=== PATIENT | male | born 1970 | race African-American/Black ===

== ENCOUNTER 2020-08-13 07:30 | Day surgery (SDC) | payer OTHER ==
[~2020-08-13] VITALS: Ht 175.3 cm; Wt 93.5 kg
[2020-08-13 08:58] VITALS: BP 148/82
[2020-08-13 13:15] VITALS: BP 141/87
== END 2020-08-13 14:15 | disposition home or self-care (01) ==
LOC: GI 07:30 → OR 14:00 → GI 14:00
PROVIDERS: ATTEND Internal Medicine Gastroenterology
DX: Z12.11 Encounter for screening for malignant neoplasm of colon (principal); K57.30 Diverticulosis of large intestine without perforation or abscess without bleeding; R60.9 Edema, unspecified; E78.5 Hyperlipidemia, unspecified; K21.9 Gastro-esophageal reflux disease without esophagitis; I10 Essential (primary) hypertension; R73.03 Prediabetes; Z79.899 Other long term (current) drug therapy; Z80.0 Family history of malignant neoplasm of digestive organs
CPT/HCPCS: 45378; J1200; J1610; J2250; J2310; J3010; J3490